=== PATIENT | male | born 1955 | race Caucasian/White ===

== ENCOUNTER 2019-06-11 14:04 | Emergency (ER) | payer MEDICARE, SELFPAY ==
--- NOTE | 2019-06-11 14:08 | ED.GENADULT ---
HPI - General Adult General Chief complaint: Extremity Problem,Nontraumatic Stated complaint: Neck Pain Time Seen by Provider: 06/11/19 14:23 Source: patient Mode of arrival: ambulatory Limitations: no limitations History of Present Illness HPI narrative: 63-year-old male patient presents to the [facility] with complaints of neck pain for the past 3 weeks. Patient states about 3 weeks ago he was taking off his shirt and states that he was bending his neck down, chin to the chest and thinks that he was doing it too fast and felt a pull to the back of his neck. Patient states that since then his pain has gradually gotten worse and feels very tight in the back. Patient states that he does have increased pain when moving his head from left to right and when looking up however does not necessarily have pain when he is looking downwards with his neck. Denies any numbness or tingling to the lower extremities. Denies any bowel or bladder control. Denies any back pain. Patient states he has been trying to take Aleve and use ice but has not really been helping much. Related Data Home Medications Medication Instructions Recorded Confirmed No Home Medications 06/11/19 06/11/19 Allergies Allergy/AdvReac Type Severity Reaction Status Date / Time No Known Allergies Allergy Verified 06/11/19 14:07 Review of Systems Review of Systems: Narrative: CONSTITUTIONAL: Denies fever, chills, or sweats. EYES: Denies visual changes, redness, or discharge. ENT: Denies rhinorrhea, congestion, sore throat, or otalgia. CARDIOVASCULAR: Denies chest pain, palpitations, or edema. RESPIRATORY: Denies cough or dyspnea. GASTROINTESTINAL: Denies abdominal pain, nausea, vomiting, or diarrhea. GENITOURINARY: Denies dysuria or hematuria. SKIN: Denies rash or itching. MUSCULOSKELETAL: Denies back pain, joint pain, or myalgia. Neck pain x3 weeks NEUROLOGIC: Denies headache, numbness, or weakness. PSYCHIATRIC: Denies anxiety or depression. PMFSH Comments Change at the time of my signature I agree with nursing past medical history, surgical, social, and family history. There is no relevant family history pertinent to the presenting complaint. Exam Narrative: Exam Narrative: GENERAL: Well-appearing, well-nourished, and in no acute distress. HEAD: Normocephalic, atraumatic. EYES: PERRLA and EOMI. ENT: Nares clear, no rhinorrhea or epistaxis. Mucous membranes moist. NECK: Supple, no lymphadenopathy. No surface trauma, soft tissue and muscle tenderness and spasm noted on palpation over bilateral scapulas. Worsening tightness noted with range of motion to the head. Trachea midline. No subq emphysema or crepitus. No anayeli tenderness, step-offs or deformity to firm Palpation at posterior midline. FROM without limitation or pain, normal flexion, extension,Lateral bending, rotation, and axial load. CHEST: Clear to auscultation. No respiratory distress. HEART: Regular rate and rhythm. No murmur heard. Normal peripheral pulses. ABDOMEN: Soft, nontender, nondistended, normal active bowel sounds. EXTREMITIES: Normal range of motion. No edema. SKIN: Warm, dry, no rash. NEURO: No focal deficits. Alert and oriented x3. Course Vital Signs Vital signs: Vital Signs Temperature 36.1 C L 06/11/19 14:17 Pulse Rate 84 06/11/19 14:17 Respiratory Rate 20 06/11/19 14:17 Blood Pressure 150/81 H 06/11/19 14:17 Pulse Oximetry 98 06/11/19 14:17 Temperature 36.1 C L 06/11/19 14:17 Pulse Rate 84 06/11/19 14:17 Respiratory Rate 20 06/11/19 14:17 Blood Pressure 150/81 H 06/11/19 14:17 Pulse Oximetry 98 06/11/19 14:17 Vital signs reviewed. The patient has been informed that they may have pre-hypertension or Hypertension based on a BP reading in the department. I recommend that the patient call the primary care provider listed on their discharge instructions or a physician of their choice this week to arrange follow up for further evaluation of possibl
[2019-06-11 14:17] VITALS: BP 150/81; PULSE 84; RESP 20; TEMP 36.1; O2SAT 98
== END 2019-06-11 14:37 | disposition home or self-care (01) ==
PROVIDERS: Emergency Provider Nurse Practitioner Family
DX: M62.838 Other muscle spasm (principal); G24.3 Spasmodic torticollis
CPT/HCPCS: 99213; G0463

== ENCOUNTER 2019-09-03 11:16 | Emergency (ER) | payer MEDICARE, SELFPAY ==
[2019-09-03 11:35] VITALS: BP 112/73; PULSE 85; RESP 16; TEMP 36.2; O2SAT 99
--- NOTE | 2019-09-03 11:45 | ED.BACK ---
HPI - Back Pain/Injury General Chief Complaint: Back Pain/Injury Stated Complaint: lower back pain Time Seen by Provider: 09/03/19 11:45 Source: patient and RN notes reviewed Mode of arrival: ambulatory Limitations: no limitations History of Present Illness HPI Narrative: 63-year-old male presents with concern for low back pain. Reports to 3-week history of back pain that is progressively getting worse. Reports mid low back pain that radiates to both sides. Reports he sometimes can find a position of comfort with no pain, however with any movement, bending, twisting, coughing, sneezing the pain is a 5-7 on a 10. He denies any acute injury, trauma. Denies any old injury. Reports taking Aleve, ice, heat with no relief. Denies any hematuria, dysuria, frequency, urgency, scrotal pain, abdominal pain. MD elicited complaint: back pain Related Data Allergies Allergy/AdvReac Type Severity Reaction Status Date / Time No Known Allergies Allergy Verified 06/11/19 14:07 Review of Systems Review of Systems: Narrative: CONSTITUTIONAL: Denies malaise, chills, sweats, or fever. CARDIOVASCULAR: Denies chest pain, palpitations, or edema. RESPIRATORY: Denies cough or dyspnea. GASTROINTESTINAL: Denies abdominal pain, nausea, vomiting, diarrhea, bloody, or mucous stools. Denies loss of bowel function GENITOURINARY: Denies dysuria or hematuria. Denies loss of bladder function, denies perianal anesthesia SKIN: Denies bruising, redness, swelling MUSCULOSKELETAL: Reports mid low back pain NEUROLOGIC: Denies numbness, weakness, or headache. All systems reviewed & are unremarkable except as noted in HPI and below PMFSH Comments At time of signature, agree with nursing past medical, surgical, social and family history. There is no relevant family history pertinent to the presenting complaint Exam Narrative: Exam Narrative: GENERAL: Well-appearing, well-nourished, and in no acute distress. HEAD: Normocephalic, atraumatic. EYES: PERRLA and EOMI. NECK: Supple. No lymphadenopathy. CHEST: Clear to auscultation. No respiratory distress. HEART: Regular rate and rhythm. Distal pulses palpable and equal, cap refill <3 seconds ABDOMEN: Soft, nontender, nondistended, normal active bowel sounds, no palpable or pulsatile masses. No CVA tenderness MUSCULOSKELETAL: Normal range of motion and strength in all extremities; 5/5 strength with hip flexion and extension, dorsiflexion and extension, knee flexion and extension, plantar flexion and extension. Normal sensation in dermatomal distributions with sensitivity to light touch and pain. No midline back tenderness to palpation. No paraspinal tenderness. Transfers from lying to sitting to standing. SKIN: Warm, dry, no rash. No ecchymosis, erythema, open wounds to back. NEURO: No focal deficits. Alert and oriented x3. Reflexes intact. Normal gait. PSYCH: Normal mood and affect Course Course Emergency Course: Patient is aware of diagnosis, understands and agrees to treatment plan. Anticipatory guidance given. Patient agrees to follow-up as directed and is aware of reasons to seek care at the emergency department. Portions of this record may have been created with voice recognition software Vital Signs Vital signs: Vital Signs Temperature 97.1 F L 09/03/19 11:35 Pulse Rate 85 09/03/19 11:35 Respiratory Rate 16 09/03/19 11:35 Blood Pressure 112/73 09/03/19 11:35 Pulse Oximetry 99 09/03/19 11:35 Temperature 97.1 F L 09/03/19 11:35 Pulse Rate 85 09/03/19 11:35 Respiratory Rate 16 09/03/19 11:35 Blood Pressure 112/73 09/03/19 11:35 Pulse Oximetry 99 09/03/19 11:35 Reviewed. MDM - Back Pain/Injury MDM Narrative Medical decision making narrative: No risk factors or findings concerning for epidural abscess, diskitis, vertebral osteomyelitis, cord compression, cauda equina, vertebral fracture or bone malignancy, AAA, or pyelonephritis. Patient instructed to consider further imaging a
== END 2019-09-03 12:02 | disposition home or self-care (01) ==
PROVIDERS: Emergency Provider Nurse Practitioner
DX: M54.5 Low back pain (principal)
CPT/HCPCS: 81003; 99213; G0463

== ENCOUNTER 2019-10-02 17:02 | Emergency (ER) | payer MEDICARE, SELFPAY ==
--- NOTE | ~2019-10-02 | CT_ITS ---
EXAMINATION: CT abdomen pelvis w con EXAM DATE: 10/02/2019 19:09 INDICATION: Abdominal pain, constipation. TECHNIQUE: Spiral CT of the abdomen and pelvis was performed following intravenous injection of 100 m L Omnipaque 350. Axial, coronal and sagittal images were reviewed. The dose-length product (DLP) fo r this examination was 906.76 mGy-cm. The exposure was tailored according to patient size (auto mA e xposure control), and iterative reconstruction (ASIR) was used as additional dose reduction technique . There is no prior study for comparison. FINDINGS: Power Machine Operator image demonstrates possible left suprahilar mass versus costochondral cartilage calci fication. There is a 6 mm nodule in the left lower lobe on image #1. Mild to moderate emphysema, basi lar fibrosis. There is bilateral gynecomastia. Innumerable liver metastatic lesions. There is also bilateral adrenal gland nodularity which could be metastatic disease. Spleen, pancreas are unremarkable. Gallbladder is unremarkable. No biliary obs truction. Portal and splenic veins are patent. Kidneys enhance symmetrically. There is no hydronep hrosis. There is a right renal cyst measuring 3.4 cm. The prostate is unremarkable. Small bilateral inguinal fat-containing hernias. The bladder is unremarkable. There is no retroperitoneal or pelvic lymphadenopathy. There is moderate scattered arteriosclerotic disease. Probable identification of a normal appendix. No pericecal inflammation. The stomach and small oz l are unremarkable. The ascending and transverse colon are moderately distended. The descending and sigmoid colon are essentially collapsed but there is no discrete transition point or focal colonic wa ll thickening identified. There is mild to moderate sigmoid colonic diverticulosis. There is no moon cent inflammatory change to suggest diverticulitis. No free intraperitoneal gas. Multiple vertebral body predominant osteolytic lesions with mild to moderate central compression frac ture of the L2 vertebral body which could be pathologic. Mild compression fractures of L3, L4 and L5 also present which are likely chronic. IMPRESSION: 1. Innumerable liver metastatic lesions. 2. Multiple vertebral body predominant osteolytic lesions. 3. Probable adrenal metastases. 4. Indeterminate left basilar 6 mm nodule. 5. Colonic diverticulosis. 6. Possible left suprahilar mass; recommend chest CT without contrast. Reviewed, dictated and finalized at location A.
--- NOTE | ~2019-10-02 | CT_ITS ---
EXAMINATION: CT cervical spine wo con EXAM DATE: 10/02/2019 19:09 INDICATION: Cervical Popping sensation. TECHNIQUE: Spiral CT of the cervical spine was performed without contrast. Axial images were reviewe d. Coronal and sagittal reformatted images were also reviewed. The dose-length product (DLP) for thi s examination was 435.52 mGy-cm. The exposure was tailored according to patient size (auto mA exposu re control), and iterative reconstruction (ASIR) was used as additional dose reduction technique. Th ere is no prior study for comparison. FINDINGS: Biapical opacities most consistent with scarring with regions of calcification. There are multiple vertebral body osteolytic lesions, with a pathological burst fracture of the C4 level, william re loss of the height, and about 3 mm of retropulsion into the spinal canal. There is complete demine ralization of the pedicles of C4, this should be considered an unstable type pathological fracture; r ecommend neurosurgical evaluation. No osteolytic lesions are identified within C2 vertebral body. The vertebral bodies are aligned in th e AP dimension. There is mild to moderate cervical spondylosis. Paraspinal soft tissue is unremarkabl e. IMPRESSION: Multiple osteolytic lesions with C4 pathological burst fracture; recommend considering t his unstable and neurosurgical evaluation. I discussed this finding with Dr. Tamar Topete at 10/02/2019 19:31 CDT. Reviewed, dictated and finalized at location A. IMPRESSION: Multiple osteolytic lesions with C4 pathological burst fracture; r ecommend considering this unstable and neurosurgical evaluation. I discussed this finding with Dr. Tamar Topete at 10/02/2019 19:31 CDT.
--- NOTE | 2019-10-02 17:16 | ED.GENADULT ---
HPI - General Adult General Chief complaint: Abdominal Pain <Jessica Allen MD - Last Filed: 10/02/19 19:16> Stated complaint: SOB <Jessica Allen MD - Last Filed: 10/02/19 19:16> Time Seen by Provider: 10/02/19 17:15 <Jessica Allen MD - Last Filed: 10/02/19 19:16> Source: patient <Jessica Allen MD - Last Filed: 10/02/19 19:16> Mode of arrival: ambulatory <Jessica Allen MD - Last Filed: 10/02/19 19:16> Limitations: no limitations <Jessica Allen MD - Last Filed: 10/02/19 19:16> History of Present Illness HPI narrative: Patient is a 64-year-old male who presented for evaluation of abdominal pain and back pain. Patient is reporting a 6-week history of worsening back pain, which he started taking tramadol for the pain as prescribed by Dr. Corley his primary care provider. Patient since developed constipation, and has not had a bowel movement in over 6 days. Patient reports lower abdominal pain, abdominal distention. No fever, nausea or vomiting. No cough, shortness of breath or chest pain. No dysuria or hematuria. Patient without history of abdominal surgeries. No recent falls or injury. No numbness or weakness. No saddle anesthesia. No urinary retention. <Jessica Allen MD - Last Filed: 10/02/19 19:16> Related Data Home medications: Home Medications Medication Instructions Recorded Confirmed naproxen sodium 220 mg tablet See Rx Instructions .ROUTE .COMPLEX 09/27/19 <Jessica Allen MD - Last Filed: 10/02/19 19:16> Allergies/adverse reactions: Allergies Allergy/AdvReac Type Severity Reaction Status Date / Time No Known Allergies Allergy Verified 10/02/19 17:29 <Jessica Allen MD - Last Filed: 10/02/19 19:16> Review of Systems Review of Systems: Narrative: CONSTITUTIONAL: Denies fever, chills, or sweats. EYES: Denies visual changes, redness, or discharge. ENT: Denies rhinorrhea, congestion, sore throat, or otalgia. CARDIOVASCULAR: Denies chest pain, palpitations, or edema. RESPIRATORY: Denies cough or dyspnea. GASTROINTESTINAL: Reports abdominal pain and distention, reports constipation GENITOURINARY: Denies dysuria or hematuria. SKIN: Denies rash or itching. MUSCULOSKELETAL: Reports upper and lower back pain, denies joint pain NEUROLOGIC: Denies headache, numbness, or weakness. PSYCHIATRIC: Denies anxiety or depression. <Jessica Allen MD - Last Filed: 10/02/19 19:16> [facility] Past Medical History Medical History: Medical History Chicken pox Chronic back pain Fatigue High cholesterol Mononucleosis Mumps Pneumonia Screening cholesterol level <Jessica Allen MD - Last Filed: 10/02/19 19:16> Family History Family History: Family History Father , 95 No problems noted. Mother , 56 Cancer <Jessica Allen MD - Last Filed: 10/02/19 19:16> Social History Social History: Social History Gender identity (if verbalized by the patient): Male <Jessica Allen MD - Last Filed: 10/02/19 19:16> Exam Narrative: Exam Narrative: GENERAL: Awake, alert, conversant HEAD: Normocephalic, atraumatic. EYES: PERRLA and EOMI. ENT: Nares clear, no rhinorrhea or epistaxis. Mucous membranes moist. NECK: Supple. CHEST: No respiratory distress, breathing even and non labored HEART: Tachycardic rate, sinus rhythm ABDOMEN: Mild distention, mild lower abdominal tenderness without rebound or guarding Thorax: No cervical midline, thoracic midline or lumbar midline tenderness EXTREMITIES: Normal range of motion. No edema. SKIN: Warm, dry, no rash. NEURO:No focal deficits. Alert and oriented x3. Finger to nose intact bilaterally. EOMs intact without nystagmus. No facial droop/asymmetry noted bilaterally. Grimace intact. Intact sensa
[2019-10-02 17:18] VITALS: BP 143/71; PULSE 124; RESP 20; TEMP 37.1; O2SAT 97
--- NOTE | 2019-10-02 17:44 | ECG_ITS ---
Measurements Intervals [place] Rate: 111 P: 73 VA: 140 QRS: -32 QRSD: 97 T: 62 QT: 315 QTc: 429 Interpretive Statements SINUS TACHYCARDIA LEFT AXIS DEVIATION BORDERLINE R WAVE PROGRESSION, ANTERIOR LEADS ABNORMAL ECG Electronically Signed On 10-02-2019 19:39:42 CDT by Teo Reyes D.O.
[2019-10-02] MEDS: ONDANSETRON INJ 4 MG/2 ML VIAL IV PUSH ×2 (17:56→20:36)
[2019-10-02] MEDS: SODIUM CHLORIDE 0.9% IV 1,000 ML 999 ML IV CONT (17:56)
[2019-10-02] MEDS: MORPHINE SULFATE 4 MG/ML INJ IV PUSH (17:56)
[2019-10-02 18:10] VITALS: BP 138/82; PULSE 95; RESP 20; O2SAT 96
[2019-10-02 18:14] LABS: Basophils Percent Auto 0.3 % (0.2-1.2); Eosinophils Absolute Auto 0.1 K/mm3 (0-0.3); Eosinophils Percent Auto 1.3 % (0-4.4); Hemoglobin 14.8 g/dL (14.0-18.0); Immature Granulocyte Absolute 0.05 K/mm3 (0.00-0.031); Immature Granulocyte Percent A 0.7 % (0-0.5); Lymphocytes Absolute Auto 0.97 K/mm3 (0.9-3.2); Lymphocytes Percent Auto 14.2 % (18.3-44.2); Mean Corpuscular HGB Conc 34.4 g/dl (32-36); Mean Corpuscular Hemoglobin 32.1 pg (26-34); Mean Corpuscular Volume 93.3 fl (80-100); Mean Platelet Volume 12.1 fl (7.4-10.4); Neutrophils Absolute Auto 4.8 K/mm3 (1.3-6.7); Neutrophils Percent Auto 69.5 % (45.5-73.1); Platelet Count Result 159 k/mm3 (150-375); Red Blood Count 4.61 M/mm3 (4.6-6.20); Red Cell Distribution Width 14.8 % (11.5-14.5); White Blood Count 6.8 K/mm3 (4.5-10.0)
[2019-10-02 18:22] LABS: INR 1.1; Partial Thromboplastin Time 34.9 SECONDS (22.3-36.8); Prothrombin Time 14.3 Seconds (11.1-14.7)
[2019-10-02 18:25] LABS: Alanine Aminotransferase 70 U/L (4-50); Albumin Level 3.8 g/dL (3.5-5.1); Alkaline Phosphatase 566 U/L (38-126); Aspartate Amino Transferase 190 U/L (17-59); Blood Urea Nitrogen 14 mg/dL (9-20); Calcium 9.9 mg/dL (8.4-10.2); Carbon Dioxide 24 mmol/L (22-30); Chloride 97 mmol/L (98-107); Estimated CRCL calculation 87 ml/min; Estimated Glomerular Filt Rate > 60; Glucose 100 mg/dL (75-110); Lactic Acid Reflex 2.7 mmol/L (0.7-2.1); Potassium 4.2 mmol/L (3.4-5.0); Sodium 130 mmol/L (137-145)
[2019-10-02 19:11] VITALS: BP 118/78; PULSE 97; RESP 20; O2SAT 96
[2019-10-02] MEDS: MORPHINE SULFATE 2 MG/ML INJ IV PUSH (19:43)
[2019-10-02] MEDS: SODIUM CHLORIDE 0.9% IV 500 ML 999 ML IV CONT (19:43)
[2019-10-02 19:45] VITALS: BP 123/79; PULSE 98; RESP 20; O2SAT 96
--- NOTE | 2019-10-02 20:07 | PC.NURSE ---
Called [facility] to transport patient. Declined.
--- NOTE | 2019-10-02 20:26 | PC.NURSE ---
Called [facility] for transport. ETA [id number] Called [facility] for transport. [facility] declined.
--- NOTE | 2019-10-02 20:31 | PC.NURSE ---
Called [facility] to request transport. [facility] declined.
[2019-10-02 20:48] VITALS: BP 120/74; PULSE 99; RESP 20; O2SAT 97
[2019-10-02 21:12] LABS: Reflex Lactic Acid Yes or No Add Lactic
[2019-10-02] MEDS: METOCLOPRAMIDE HCL INJ 10 MG/2 ML VIAL IV PUSH (21:35)
[2019-10-02] MEDS: DEXTROSE 5%/0.9% SOD CHL 1,000 ML 100 ML IV CONT (21:36)
== END 2019-10-02 21:50 | disposition short-term general hospital (02) ==
PROVIDERS: Emergency Medicine; Emergency Provider Emergency Medicine; PCP Emergency Medicine
DX: R10.84 Generalized abdominal pain (principal); R74.0 Nonspecific elevation of levels of transaminase and lactic acid dehydrogenase [LDH]; E80.6 Other disorders of bilirubin metabolism; R94.5 Abnormal results of liver function studies; E87.2 Acidosis; C22.9 Malignant neoplasm of liver, not specified as primary or secondary; E78.00 Pure hypercholesterolemia, unspecified; M84.48XA Pathological fracture, other site, initial encounter for fracture; R00.0 Tachycardia, unspecified; R94.31 Abnormal electrocardiogram [ECG] [EKG]; M89.9 Disorder of bone, unspecified; R91.1 Solitary pulmonary nodule; K57.90 Diverticulosis of intestine, part unspecified, without perforation or abscess without bleeding
CPT/HCPCS: 36415; 72125; 74177; 80053; 83605; 85025; 85610; 85730; 93005; 96361; 96365; 96375; 99285; J2270; J2405; J2543; J2765; J7030; J7040; J7042; L0140; Q9967

== ENCOUNTER 2019-10-19 01:16 | Outpatient (CLI) | payer MEDICARE, SELFPAY ==
[2019-10-19 16:42] LABS: SARS-CoV-2 RNA PCR Negative
== END 2019-10-19 01:17 | disposition home or self-care (01) ==
LOC: ANHCOVIDDT 01:16
PROVIDERS: PCP Emergency Medicine; Visit Provider Surgery
DX: Z20.828 Contact with and (suspected) exposure to other viral communicable diseases (principal); Z01.812 Encounter for preprocedural laboratory examination
CPT/HCPCS: 87635; C9803; U0003

== ENCOUNTER 2019-10-22 00:57 | Day surgery (SDC) | payer MEDICARE, SELFPAY ==
[2019-10-17 13:34] VITALS: BMI 25.7
[2019-10-17 13:47] VITALS: BMI 25.7
--- NOTE | ~2019-10-22 | XR_ITS ---
EXAMINATION: XR chest port-a-cath/central DATE: 10/22/2019 14:58 INDICATION: Port catheter insertion TECHNIQUE: frontal view of the chest was obtained. COMPARISON: Chest radiograph dated 08/07/2018 FINDINGS: Right internal jugular central venous port catheter with distal tip near the superior cavoatrial junc tion. Emphysema with mild biapical pleural-parenchymal scarring. Approximately 3 cm masslike opacity in the left upper lung zone. Mild reticular opacities at the bilateral lower lung zones. No pneumotho rax or evident pleural effusion. The left costophrenic angle is excluded from the [id number]. The cardiomediastinal silhouette is normal. Partially visualized plate and screw fixation for anterior ce rvical spinal fusion. IMPRESSION: 1. No pneumothorax or other acute cardiopulmonary disease post placement of a right internal jugular central venous port catheter with distal tip at the superior cavoatrial junction. 2. 3 cm masslike opacity in the left upper lung zone concerning for malignancy. Recommend chest CT fo r further evaluation or correlation with prior outside imaging if available. 3. Mild reticular opacities at the lung bases which could represent mild pulmonary edema, atelectasis or pneumonia. 4. Emphysema. Reviewed, dictated and finalized at location A. IMPRESSION: 1. No pneumothorax or other acute cardiopulmonary disease post placement of a r ight internal jugular central venous port catheter with distal tip at the super ior cavoatrial junction. 2. 3 cm masslike opacity in the left upper lung zone concerning for malignancy. Recommend chest CT for further evaluation or correlation with prior outside im aging if available. 3. Mild reticular opacities at the lung bases which could represent mild pulmon palak edema, atelectasis or pneumonia. 4. Emphysema.
--- NOTE | ~2019-10-22 | XR_ITS ---
EXAMINATION: XR fl guide central line place DATE: 10/22/2019 14:37 INDICATION: Port catheter insertion TECHNIQUE: 3 fluoroscopic spot images of the right and central chest were obtained during port cathet er insertion performed by Dr. Henning. Radiologist was not present for the imaging or procedure. The amount of fluoroscopy time used during this procedure was 0.5 minutes. COMPARISON: 08/07/2018 FINDINGS: Interval placement of a right internal jugular central venous port catheter with distal tip projectin g at the superior cavoatrial junction. Calcified pleural plaque at the right apex. IMPRESSION: 1. Fluoroscopy utilized during right internal jugular central venous port catheter placement with dis garret tip near the superior cavoatrial junction. Reviewed, dictated and finalized at location A. IMPRESSION: 1. Fluoroscopy utilized during right internal jugular central venous port delbert ter placement with distal tip near the superior cavoatrial junction.
--- NOTE | 2019-10-22 11:43 | PM.HPGS ---
History of Present Illness History of Present Illness Consent: Risks, benefits, and alternatives have been discussed and questions answered. Patient agrees to proceed with procedure. 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 Consultation was requested for consideration of Placement of a Port-A-Cath for use in chemotherapy. Review of Systems Constitutional: Constitutional: Reports no additional constitutional complaints, Reports fatigue and Denies malaise Eyes: Eyes: Denies change in vision and Denies loss of vision ENT: Reports Normal hearing present, Denies change in voice, Denies dizziness, Denies hoarseness and Denies sore throat Cardiovascular: Cardiovascular: Denies chest pain, Denies leg edema and Denies dyspnea Respiratory: Respiratory: Denies cough, Denies dyspnea and Denies wheezing Gastrointestinal: Gastrointestinal: Denies hematochezia, Denies change in bowel habits and Denies heartburn Comments: CT scan of the abdomen and pelvis has shown some lesions in his liver shown to be metastatic small cell carcinoma the lung by CT-guided biopsy. 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 Also had tumor in his C4 vertebra. Psychiatric: Psychiatric: Denies confusion, Denies depression and Denies memory loss Endocrine: Endocrine: Denies cold intolerance and Reports fatigue Hematologic/Lymphatic: Hematologic/Lymphatic: Denies easy bleeding and Denies easy bruising Allergic/Immunologic: Allergic/Immunologic: Denies wheezing PMFSH Past Medical History Medical History (Updated 10/22/19 @ 13:52 by Nicanor Henning MD) Chicken pox Chronic back pain Fatigue High cholesterol Mononucleosis Mumps Non-small cell carcinoma of left lung, stage 4 (Unknown) liver metastasis Pneumonia Screening cholesterol level Social History Social History Smoking packs per day: 2 Smoking cigarettes per day: 40.0 Years smoked: 50 Smoking pack-years: 100.00 Smoking status: Former smoker Tobacco type: cigarettes Gender identity (if verbalized by the patient): Male Spiritual care concerns: No Meds Home Medications and Allergies Home Medications Medication Instructions Recorded Confirmed Type dexamethasone 4 mg PO BID 10/16/19 10/22/19 History hydrocodone-acetaminophen 1 tablet PO Q4H PRN 10/16/19 10/22/19 History loperamide [Imodium A-D] 2 mg PO QID PRN 10/17/19 10/22/19 History prochlorperazine maleate 10 mg PO Q6-8H PRN 10/22/19 10/22/19 History Allergies Allergy/AdvReac Type Severity Reaction Status Date / Time No Known Allergies Allergy Verified 10/22/19 11:48 Exam Const: General: cooperative, healthy appearing, no acute distress, well developed and alert; No confusion Nutritional Appearance: well nourished Orientation/consciousness: patient oriented x3 and No confusion Limitations: no limitations HENMT: Head: normal to inspection, normocephalic and atraumatic Ears: hearing grossly normal bilaterally General nose exam: Normal external nose present Face and sinus: no edema Mouth: Yes Normal oral and palatal mucosa present and Yes lip normal Throat: posterior oropharynx normal Eyes: General: appearance normal, both eyes and all related structures Sclera: sclerae normal Pupils: Equal, round and reactive pupils present EOM: EOMs intact bilaterally Other: . Neck: Neck: normal visual inspection, no lymphadenopathy, trachea midline, supple and no JVD Other: Patient has a well-healed transverse scar high on the neck under his rig
[2019-10-22 11:54] VITALS: BMI 24.5
--- NOTE | 2019-10-22 11:54 | WPDANESEPPF ---
Anes - Initial Pre Proc Eval Procedure: Operation Date: 10/22/19 13:30 Proposed Procedures p Insertion Michael Cath - Nicanor Henning MD Date/Time: 10/22/19 11:54 Surgeon: Nicanor Henning MD Pre Op Diagnosis: Non Small Lung Cancer Patient Data Age: 64 Gender: M Height: 1.83 m Weight: 86.18 kg Allergies Allergy/AdvReac Type Severity Reaction Status Date / Time No Known Allergies Allergy Verified 10/22/19 11:48 Home Medications Medication Instructions Recorded Confirmed Type dexamethasone 4 mg PO BID 10/16/19 10/22/19 History hydrocodone-acetaminophen 1 tablet PO Q4H PRN 10/16/19 10/22/19 History loperamide [Imodium A-D] 2 mg PO QID PRN 10/17/19 10/22/19 History prochlorperazine maleate 10 mg PO Q6-8H PRN 10/22/19 10/22/19 History Patient hx anesthesia problems: none Family hx anesthesia problems: none PMFSH Past Medical History Medical History (Updated 10/22/19 @ 11:54 by Lio Massey DO) Chicken pox Chronic back pain Fatigue High cholesterol Mononucleosis Mumps Non-small cell carcinoma of left lung, stage 4 (Unknown) liver metastasis Pneumonia Screening cholesterol level Social History Social History Smoking packs per day: 2 Smoking cigarettes per day: 40.0 Years smoked: 50 Smoking pack-years: 100.00 Smoking status: Former smoker Tobacco type: cigarettes Gender identity (if verbalized by the patient): Male Spiritual care concerns: No Anes - Eval Final PreProcedure Day of Procedure 10/22/19 11:54 Patient weight: overweight Heart: regular rate and rhythm Lungs: clear to auscultation and normal air movement Airway: Mallampati scale class II Neurological: alert and oriented Last oral intake: >/= 8 hours ASA classification: III Emergent: no Anesthetic plan: proceed Anesthesia type and monitoring: general GIVS and standard monitoring Informed Consent: The patient's anesthetic plan and its attendant risks and benefits were discussed with the patient/family/POA. Questions were solicited and answers provided to the satisfaction of the patient/family/POA.
[2019-10-22] MEDS: LACTATED RINGERS 1,000 ML 30 ML IV CONT (12:30)
[2019-10-22 12:45] VITALS: BP 123/73; PULSE 102; RESP 20; TEMP 36.7; O2SAT 97
[2019-10-22] MEDS: IBUPROFEN IV 800 MG/200 ML 800 MG/200 ML BAG 400 MG IVPB (12:45)
[2019-10-22 13:08] LABS: Sodium 130 mmol/L (137-145)
[2019-10-22] MEDS: ceFAZolin 2 GM/D5W 50 ML 2 GM/50 ML BAG IVPB (13:52)
--- NOTE | 2019-10-22 14:03 | SUR.PREOP ---
1200; DR PEACOCK NOTIFIED OF PT'S LOOSE, NONPROD COUGH. DENIES SOB.
[2019-10-22] MEDS: HEPARIN SODIUM 5,000 UNITS/ML VIAL 5000 UNITS IRRIGATION (14:25)
[2019-10-22] MEDS: BUPIVACAINE/EPINEPHRINE 0.5% 30 ML VIAL 20 ML INFILTRATE (14:25)
--- NOTE | 2019-10-22 14:47 | PM.PROC ---
Procedure Note - Detailed Date of procedure: 10/22/19 Pre-op diagnosis: Non Small Lung Cancer Post-op diagnosis: same Procedure performed: placement of Port-A-Cath Description of procedure: Patient was seen and marked in the pre-op area prior to coming to the OR. Patient was brought to the operating room. He was placed supine on the operating table and general IV sedation was induced. The nurse reclamation kettle tender provided oxygen and IV sedation. Patient's head was carefully turned to the left side while in the supine position and the patient's entire neck and anterior chest on both sides was prepped and draped in the usual sterile fashion. Following this the appropriate time-out was completed confirming procedure and patient. We confirmed that all the needed equipment was present in the room. Following this the ultrasound probe was draped into the field and using the probe we carefully identified the carotid artery and jugular vein on the right neck. I marked the skin directly over the Rt. internal jugular vein. Following this, using the continuous ultrasound guidance, a Cook needle was placed through the skin into this vein. I then was able to draw back good dark blood. Once this was completed a guidewire using a J-tip was advanced through the needle and then the needle and the guidewire cover were withdrawn. C-arm fluoroscopy was used to confirm that the guidewire was nicely in the venous system. Once this was confirmed with the C - arm I preceded on by making the pocket for the port on the patient's anterior right chest approximately 3 centimeters below the clavicle overlying the chest wall. Local anesthetic was infiltrated into the skin where there was a transverse incision marked out. Incision was made and we made a pocket inferior to the incision with just a little dissection superior. The Bard low-profile port was tried in the pocket and seemed to fit well. Following this the catheter which had been placed on a tunneling device was tunneled from the port site on the anterior right chest up to the right neck where a small incision had been made with an #11 blade knife. Then the catheter was pulled through so that we would have 15 centimeters to put into the central venous system once the dilation took place. Following this we placed the dilator and sheath over the guidewire in the jugular vein and carefully dilated the tract into the central venous system. The guidewire and dilator were then removed, carefully covering the end of the sheath to prevent air embolus. The end of the catheter which had been cut off straight across and the tip checked was then inserted into the sheath and into the neck. I then carefully pulled the 2 arms of the tear-away sheath away as the resident care assistant held the catheter in position with a DeBakey forceps. Following this we checked the position of the catheter with C-arm fluoroscopy confirming that the tip seemed to be in the distal superior vena cava near the junction with the right atrium. I felt that it was in good position and so the rest of the catheter was pulled down toward the feet into the port site. We then measured to the appropriate position to cut the catheter to attach it to the port stem. Then the connector sealing device for the catheter port was placed onto the catheter and then the catheter cut to the appropriate length and inserted onto the stem of the port. Then the connector was advanced onto the stem over the catheter sealing it to the port. A single 3- 0 Prolene suture was also used during this to suture the connector to the port and to the underlying musculature. Following this at one other site the port was sutured to the underlying musculature with the 3-0 Proline. Both prior to connecting the catheter to the port and then using a straight Randolph needle following this connection, the port was aspirated of good dark blood and flushed with heparinized saline to keep the catheter from having any air in it and
[2019-10-22 14:56] VITALS: BP 110/61; PULSE 87; RESP 15; TEMP 36.3; O2SAT 100
[2019-10-22 15:18] VITALS: BP 106/71; PULSE 92; RESP 15; O2SAT 100
[2019-10-22 15:46] VITALS: BP 125/57; PULSE 82; RESP 15; O2SAT 100
--- NOTE | 2019-10-22 15:47 | SUR.PHASEII ---
1545- ice pack to right surgical site at shoulder. instructions reviewed with pt.
== END 2019-10-22 16:05 | disposition home or self-care (01) ==
PROVIDERS: PCP Emergency Medicine; Visit Provider Surgery
PROC: (CPT 36561; principal; 2019-10-22 13:30)
DX: C34.92 Malignant neoplasm of unspecified part of left bronchus or lung (principal); C78.7 Secondary malignant neoplasm of liver and intrahepatic bile duct; E78.00 Pure hypercholesterolemia, unspecified; R53.83 Other fatigue; Z87.891 Personal history of nicotine dependence
CPT/HCPCS: 36561; 36415; 77001; 84295; C1788; J0690; J1644; J1741; J2250; J2704; J3010; J7030; J7120

== ENCOUNTER 2019-10-25 11:42 | Inpatient (IN) | payer MEDICARE, SELFPAY ==
[2019-10-25] VITALS (12 sets, daily range): BP systolic 88–121; BP diastolic 50–91; PULSE 103–119; RESP 16–29; TEMP 36.6–36.8; O2SAT 94–97; BMI 23.9
--- NOTE | ~2019-10-25 | XR_ITS ---
EXAMINATION: XR chest 1V portable DATE: 10/25/2019 14:53 INDICATION: Cough. TECHNIQUE: A single frontal view of the chest was obtained. COMPARISON: Chest single view 10/22/2019, CT abdomen and pelvis 10/25/2019 FINDINGS: There are lucencies in the lungs with diffuse interstitial opacities, consistent with emphy sema. There are airspace opacities in the lower lung zones. There is a mass in left upper lung zone. There is mild scarring at the lung apices. No pleural effusion or pneumothorax. The heart size is nor mal. There is a right internal jugular port with tip at superior cavoatrial junction. IMPRESSION: 1. Airspace opacities in the lower lung zones, consistent with pneumonia. 2. Mass in left upper lung zone, consistent with primary bronchogenic carcinoma. 3. Emphysema. Reviewed, dictated and finalized at location A. IMPRESSION: 1. Airspace opacities in the lower lung zones, consistent with pneumonia. 2. Mass in left upper lung zone, consistent with primary bronchogenic carcinoma . 3. Emphysema.
--- NOTE | ~2019-10-25 | CT_ITS ---
EXAMINATION: CT abdomen pelvis w con DATE: 10/25/2019 13:50 INDICATION: Abdominal pain. Low back pain. TECHNIQUE: Computed tomography (CT) of the abdomen and pelvis was performed with 100 mm Omnipaque 350 intravenous contrast. Automated exposure control and iterative reconstruction technique were employe d. The dose-length product was 578.64 mGy-cm. COMPARISON: CT abdomen and pelvis 10/02/2019 FINDINGS: The visualized portions of the lung bases demonstrate emphysema. There are airspace opaciti es and nodules in the lower lobes, consistent with pneumonia. There is mild atelectasis in right midd le lobe and lingula. No pleural effusion. The heart size is normal. There are coronary artery calcifi cations. No pericardial effusion. There are greater than 20 masses in the liver measuring up to 5.3 c m in left hepatic lobe. The gallbladder, spleen, and pancreas are normal. There is thickening of the adrenal glands, which is indeterminate for metastatic disease. There are cysts in right kidney measur ing up to 3.2 cm. Left kidney is normal. There are no dilated loops of bowel. The appendix is normal. There is a 3.2 cm fusiform infrarenal aortic aneurysm. There are no pathologically enlarged lymph no gianluca. There is no free intraperitoneal fluid. There is prominent fat in the inguinal canals that may b e small hernias. There are innumerable lytic lesions involving most of the bones, consistent with met astatic disease. There are compression fractures of L2 and L3, stable from 10/02/2019. IMPRESSION: 1. Pneumonia in the lower lobes. 2. Liver masses and lytic bone lesions, consistent with metastatic disease. Reviewed, dictated and finalized at location A.
--- NOTE | 2019-10-25 11:42 | PC.NURSE ---
Pt unable to urinate at this time
[2019-10-25] MEDS: MORPHINE SULFATE 4 MG/ML INJ IV PUSH (12:25)
[2019-10-25] MEDS: ONDANSETRON INJ 4 MG/2 ML VIAL IV PUSH (12:26)
[2019-10-25 12:32] LABS: Basophils Percent Auto 0.3 % (0.2-1.2); Eosinophils Absolute Auto 0.1 K/mm3 (0-0.3); Eosinophils Percent Auto 0.6 % (0-4.4); Hematocrit 42.8 % (42.0-52.0); Hemoglobin 14.5 g/dL (14.0-18.0); Immature Granulocyte Absolute 0.23 K/mm3 (0.00-0.031); Immature Granulocyte Percent A 1.6 % (0-0.5); Immature Platelet Fraction Pct 6.7 % (0.9-11.2); Lymphocytes Absolute Auto 1.15 K/mm3 (0.9-3.2); Lymphocytes Percent Auto 7.8 % (18.3-44.2); Mean Corpuscular HGB Conc 33.9 g/dl (32-36); Mean Corpuscular Hemoglobin 32.3 pg (26-34); Mean Corpuscular Volume 95.3 fl (80-100); Mean Platelet Volume 12.3 fl (7.4-10.4); Monocytes Absolute Auto 0.9 K/mm3 (0.1-0.6); Monocytes Percent Auto 6.3 % (2.6-8.5); Neutrophils Absolute Auto 12.4 K/mm3 (1.3-6.7); Neutrophils Percent Auto 83.4 % (45.5-73.1); Nucleated Red Blood Cells Perc 0.1 % (0.0-0.2); Platelet Count Result 95 k/mm3 (150-375); Red Blood Count 4.49 M/mm3 (4.6-6.20); Red Cell Distribution Width 17.4 % (11.5-14.5); White Blood Count 14.8 K/mm3 (4.5-10.0)
[2019-10-25 12:39] LABS: INR 1.4; Prothrombin Time 16.4 Seconds (11.1-14.7)
[2019-10-25 12:40] LABS: Partial Thromboplastin Time 33.9 SECONDS (22.3-36.8)
[2019-10-25 12:41] LABS: Alanine Aminotransferase 145 U/L (4-50); Albumin Level 3.1 g/dL (3.5-5.1); Alkaline Phosphatase 730 U/L (38-126); Aspartate Amino Transferase 399 U/L (17-59); Blood Urea Nitrogen 18 mg/dL (9-20); Calcium 9.1 mg/dL (8.4-10.2); Carbon Dioxide 27 mmol/L (22-30); Chloride 94 mmol/L (98-107); Estimated Glomerular Filt Rate > 60; Glucose 102 mg/dL (75-110); Potassium 4.6 mmol/L (3.4-5.0); Sodium 128 mmol/L (137-145)
--- NOTE | 2019-10-25 12:42 | PC.NURSE ---
Pt still unable to urinate at this time
[2019-10-25] MEDS: SODIUM CHLORIDE 0.9% IV 1,000 ML 999 ML IV CONT ×2 (13:02→15:28)
--- NOTE | 2019-10-25 13:32 | PC.NURSE ---
Pt attempted to urinate, but not enough for specimen
--- NOTE | 2019-10-25 14:43 | PC.NURSE ---
Pt states he is able to urinate now, attempting at this time
[2019-10-25 14:58] LABS: Add Urine Microscopic? NO; Appearance Urine Clear (Clear); Bilirubin Urine Negative (Negative); Blood Urine Negative (Negative); Color Urine Straw (Yellow); Glucose Urine UA Negative (Negative); Ketones Urine Negative (Negative); Leukocyte Esterase Ur Negative LEU/UL (Negative); Nitrate Urine Negative (Negative); Protein Urine Negative (Negative); Specific Grav Ur 1.024 (1.001-1.035); Urobilinogen Urine Negative mg/dL (<2.0)
[2019-10-25 14:59] LABS: Lactic Acid Reflex 3.4 mmol/L (0.7-2.1)
[2019-10-25] MEDS: SODIUM CHLORIDE 0.9% IV 500 ML 999 ML IV CONT (15:28)
--- NOTE | 2019-10-25 15:36 | ED.BACK ---
HPI - Back Pain/Injury General Chief Complaint: Back Pain/Injury Stated Complaint: BACK PAIN Time Seen by Provider: 10/25/19 11:48 History of Present Illness HPI Narrative: Patient presents emergency department from home via EMS for back pain. Patient states she is had low back pain that began last night. Patient states pain is located in the bilateral lower back. He denies any known trauma or injury. States he does have a history of lung cancer with metastasis to the brain bone and liver states that he had a port put in this past week and is scheduled for radiation and chemotherapy with Dr. Diaz starting next week. Denies any fevers or chills chest pain shortness of breath abdominal pain nausea vomiting or any other symptoms. Related Data Home Medications Medication Instructions Recorded Confirmed dexamethasone 4 mg PO BID 10/16/19 10/22/19 hydrocodone-acetaminophen 1 tablet PO Q4H PRN 10/16/19 10/22/19 loperamide [Imodium A-D] 2 mg PO QID PRN 10/17/19 10/22/19 prochlorperazine maleate 10 mg PO Q6-8H PRN 10/22/19 10/22/19 Allergies Allergy/AdvReac Type Severity Reaction Status Date / Time No Known Allergies Allergy Verified 10/25/19 11:47 Review of Systems Review of Systems: Narrative: Gen.: Denies fevers or chills Eyes: Denies eye pain or visual change ENT: Denies congestion Respiratory: Denies shortness of breath or cough CV: Denies chest pain or palpitations GI: Denies abdominal pain nausea, emesis or diarrhea denies burning, urgency, frequency or hematuria Musculoskeletal: Reports low back pain Neuro: Denies numbness, tingling, weakness or focal weakness Skin: Denies rash Except as documented, all other systems reviewed and negative [facility] Past Medical History Medical History Chicken pox Chronic back pain Fatigue High cholesterol Mononucleosis Mumps Non-small cell carcinoma of left lung, stage 4 (Unknown) liver metastasis Pneumonia Screening cholesterol level Social History Social History Smoking packs per day: 2 Smoking cigarettes per day: 40.0 Years smoked: 50 Smoking pack-years: 100.00 Smoking status: Former smoker Tobacco type: cigarettes Gender identity (if verbalized by the patient): Male Spiritual care concerns: No Exam Narrative: Exam Narrative: APPEARANCE: No acute distress, nontoxic, resting in bed EYES: EOMI HEENT: Normocephalic, atraumatic, OMM RESPIRATORY: No respiratory distress Clear to auscultation bilaterally with no rhonchi wheezing or rales. CARDIOVASCULAR: Regular rate and rhythm without murmurs rubs or gallops. ABDOMINAL: Soft, nontender, nondistended, no rebound or guarding MUSCULOSKELETAl: Moves all extremities. No clubbing, cyanosis or edema. Back: No midline thoracic lumbar tenderness palpation, tender palpation bilateral para 2 muscles L3-5, pain increased with forward flexion NEURO: Awake and alert. Following commands, speech normal, no focal deficits SKIN:: Warm, dry. No rashes lesions or abrasions PSYCHIATRIC: Normal affect/mood, Course Course Emergency Course: Discussed with patient chest x-ray. He states he has had no fevers states he has had no shortness of breath. States he has had an occasional cough he was recently in the hospital getting his port placed. We will test recovered at this time Discussed with Dr. Johnson for general surgery. States the port may be used Discussed with MJ Pederson for Dr. Villasenor presentation work-up. Agrees with admission at this time Discussed with patient and family results of workup and diagnosis. Discussed need for admission. Patient and family understand and agree to current treatment plan Vital Signs Vital signs: Vital Signs Temperature 97.8 F 10/25/19 11:41 Pulse Rate 119 H 10/25/19 11:41 Respiratory Rate 18 10/25/19 11:41 Blood Pressure 121/66 10/25/19 11:41 Pulse Oximetry 96
--- NOTE | 2019-10-25 17:27 | ADMGEN ---
This patient, Walter Blackmon, was admitted to Intensive Care Unit-5. Patient/family oriented to hospital policies and general routines including ID bracelet, bed and alarms, visiting hours, pain management, procedures, bathroom and other care routines, personal items, smoking policy, room service/diet, and visiting hours. Valuables list has been completed. Information on how to activate the Rapid Response Team has been discussed. Patient/Family are encouraged to report perceived risks to care and to ask questions if they do not understand what they are told or what they should do.
[2019-10-25 17:40] LABS: Reflex Lactic Acid Yes or No Add Lactic
[2019-10-25] MEDS: SODIUM CHLORIDE 0.9% IV 1,000 ML 50 ML IV CONT (20:00)
--- NOTE | 2019-10-25 20:33 | PM.IMHP ---
H&P: HPI History of Present Illness Chief complaint: Severe sepsis/community acquired pneumonia/lung ca Narrative: Walter Blackmon is a 64 year old male who has metastatic cancer from lung non-small cell carcinoma that has metastasized to his neck back liver and brain. He said he had surgery to his neck but has not yet had chemo radiation. He recently had a Port-A-Cath placed 10/22/2019 here at [facility]. He has a mass in the left upper lung lobe. He has not had any fever chills. He stated he has already been tested for covid 19 at least 2 times already. Today he got tested again. His chest x-ray was read as airspace opacities in the lower lung zones consistent with pneumonia. Mass in the left upper lung zone, consistent with primary bronchogenic carcinoma. Emphysema. The patient was started on azithromycin and Rocephin. The ER provider did call the surgeon to see if the port could be accessed. As per ER notes it was noted that it was okay to access the Port-A-Cath. So I did access the Port-A-Cath. Fluids were started as the patient's blood pressure was soft. Abdominal pelvis CT was read as pneumonia in the lower lobes. Liver masses with lytic bone lesions consistent with metastatic disease. The patient had been complaining of lower back pain he takes [place] at home but stated that he does not feel like he has been keeping up on him and that he has been having severe back pain. The patient has been on dexamethasone at home. White count was noted to be 14.8. Sodium was low at 128. Liver enzymes are elevated. He sees Dr. donato as his oncologist and has spoke with Dr. Sahu concerning radiation. Date of service 10/25/2019 Review of Systems Review of Systems: All systems reviewed & are unremarkable except as noted in HPI and below Constitutional: Constitutional: Reports as per HPI and Reports no additional constitutional complaints Eyes: Eyes: Reports as per HPI and Reports no additional eye complaints ENT: Reports system reviewed and no additional complaints, except as documented and Reports Normal hearing present Cardiovascular: Cardiovascular: Reports no additional cardiovascular complaints Respiratory: Respiratory: Reports no additional respiratory complaints and Reports no additional respiratory complaints Gastrointestinal: Gastrointestinal: Reports as per HPI and Reports no additional gastrointestinal complaints Musculoskeletal: Musculoskeletal: Reports no additional musculoskeletal complaints Integumentary/Breasts: Skin/Breast: Reports system reviewed and no additional complaints, except as docu and Reports as per HPI Neurologic: Reports system reviewed and no additional complaints, except as documented, Reports as per HPI and Reports Normal hearing present Psychiatric: Psychiatric: Reports no additional psychiatric complaints and Reports as per HPI Endocrine: Endocrine: Reports no additional endocrine complaints Hematologic/Lymphatic: Hematologic/Lymphatic: Reports no additional hematologic/lymphatic complaints Allergic/Immunologic: Allergic/Immunologic: Reports no additional allergic/immunologic complaints PMFSH Past Medical History Medical History (Updated 10/25/19 @ 20:41 by Dacia Correa NP) Chicken pox Chronic back pain Fatigue High cholesterol Mononucleosis Mumps Non-small cell carcinoma of left lung, stage 4 (Unknown) liver metastasis Pneumonia Screening cholesterol level Surgical History Surgical History (Updated 10/25/19 @ 20:41 by Dacia Correa NP) H/O neck surgery He stated that he had some cancer script off the back of his neck. Family History Family History Father , 95 No problems noted. Mother , 56 Cancer Social History Social History (Updated 10/25/19 @ 20:42 by Dacia Correa NP) Social History: The patient lives home alone. He is and he is retired. He has 1 child
[2019-10-25 21:27] LABS: Lactic Acid 3.2 mmol/L (0.7-2.1)
[2019-10-26] VITALS: BP 103/57; PULSE 111; PULSE 112; RESP 18; O2SAT 96
[2019-10-26 02:00] VITALS: PULSE 114
[2019-10-26 04:00] VITALS: BP 103/71; PULSE 107; PULSE 111; RESP 19; TEMP 36.5; O2SAT 97
[2019-10-26 05:46] LABS: Basophils Percent Auto 0.2 % (0.2-1.2); Eosinophils Absolute Auto 0.1 K/mm3 (0-0.3); Eosinophils Percent Auto 0.8 % (0-4.4); Hematocrit 38.2 % (42.0-52.0); Hemoglobin 12.8 g/dL (14.0-18.0); Immature Granulocyte Percent A 1.5 % (0-0.5); Lymphocytes Absolute Auto 0.92 K/mm3 (0.9-3.2); Mean Corpuscular HGB Conc 33.5 g/dl (32-36); Mean Corpuscular Hemoglobin 32.2 pg (26-34); Mean Corpuscular Volume 96.2 fl (80-100); Mean Platelet Volume 12.1 fl (7.4-10.4); Monocytes Absolute Auto 0.9 K/mm3 (0.1-0.6); Monocytes Percent Auto 7.2 % (2.6-8.5); Neutrophils Absolute Auto 10.9 K/mm3 (1.3-6.7); Neutrophils Percent Auto 83.3 % (45.5-73.1); Platelet Count Result 89 k/mm3 (150-375); Red Blood Count 3.97 M/mm3 (4.6-6.20); Red Cell Distribution Width 17.9 % (11.5-14.5); White Blood Count 13.1 K/mm3 (4.5-10.0)
[2019-10-26 05:55] LABS: Blood Urea Nitrogen 14 mg/dL (9-20); Calcium 8.4 mg/dL (8.4-10.2); Carbon Dioxide 25 mmol/L (22-30); Chloride 100 mmol/L (98-107); Estimated CRCL calculation 113 ml/min; Estimated Glomerular Filt Rate > 60; Glucose 67 mg/dL (75-110); Potassium 4.4 mmol/L (3.4-5.0); Sodium 130 mmol/L (137-145)
[2019-10-26 06:00] VITALS: PULSE 110
[2019-10-26 08:00] VITALS: BP 108/71; PULSE 124; RESP 28; O2SAT 97
--- NOTE | 2019-10-26 08:07 | PC.NURSE ---
Entered patient room with breakfast, patient agitated, angry and wants to leave. Patient ordered breakfast at 0645, and was not delivered until 0800, stated no one was assisting him. Left message to advise Dr. Villasenor that patient intends to leave AMA.
--- NOTE | 2019-10-26 09:35 | PC.NURSE ---
Patient left AMA. IV access removed, right port-a-cath removed. Patient educated on risks related to leaving prior to discharge, patient acknowledged understanding. Patient left ICU 5 via wheelchair. No distress noted. Dr.s Villasenor and Joe notified.
[2019-10-26 13:20] LABS: SARS-CoV-2 RNA PCR Negative
--- NOTE | 2019-12-04 13:01 | WPDONCPN ---
Progress Note: A/P - Time Spent With Patient Total time spent is greater than 50% in coordination of care (as documented) at patient's floor/unit and/or counseling patient: Not seen less than 15 minutes Subjective Interval history: Patient left AMA before seen. Review of Systems - Neurologic Reports system reviewed and no additional complaints, except as documented, Reports hearing normal Exam Vital signs: Temp Pulse Resp BP Pulse Ox 36.5 C 124 H 28 H 108/71 97 10/26/19 04:00 10/26/19 08:00 10/26/19 08:00 10/26/19 08:00 10/26/19 08:00 PN: Objective Data - Labs CBC & Chem 7: 10/26/19 05:17 10/26/19 05:17
== END 2019-10-26 09:25 | disposition left against medical advice (07) | DRG 871 ==
LOC: ANHED 12:10 → ANHICU 16:10
PROVIDERS: Admitting Provider Family Medicine; Emergency Provider Emergency Medicine; PCP Emergency Medicine; Visit Provider Family Medicine
DX: A41.9 Sepsis, unspecified organism (principal); J18.9 Pneumonia, unspecified organism; C34.90 Malignant neoplasm of unspecified part of unspecified bronchus or lung; C78.7 Secondary malignant neoplasm of liver and intrahepatic bile duct; C79.51 Secondary malignant neoplasm of bone; C79.31 Secondary malignant neoplasm of brain; R65.20 Severe sepsis without septic shock; Z20.828 Contact with and (suspected) exposure to other viral communicable diseases; E78.00 Pure hypercholesterolemia, unspecified; M54.5 Low back pain; G89.29 Other chronic pain; Z87.891 Personal history of nicotine dependence
CPT/HCPCS: 36415; 71045; 74177; 80048; 80053; 81003; 83605; 85025; 85055; 85610; 85730; 87040; 87070; 87205; 87635; 96361; 96365; 96367; 96375; 99285; C9803; J0456; J0696; J1642; J2270; J2405; J7030; J7040; Q9967; U0003

== ENCOUNTER 2019-10-30 09:26 | Outpatient (RCR) | payer MEDICARE, SELFPAY ==
--- NOTE | 2019-10-25 16:04 | PC.NURSE ---
Unable to reach patient, left message for patient to call office for chemotherapy education.
[2019-10-30 09:47] LABS: Basophils Percent Auto 0.3 % (0.2-1.2); Eosinophils Absolute Auto 0.1 K/mm3 (0-0.3); Eosinophils Percent Auto 0.8 % (0-4.4); Hematocrit 38.3 % (42.0-52.0); Hemoglobin 13.1 g/dL (14.0-18.0); Immature Granulocyte Absolute 0.12 K/mm3 (0.00-0.031); Immature Granulocyte Percent A 1.1 % (0-0.5); Lymphocytes Absolute Auto 1.11 K/mm3 (0.9-3.2); Lymphocytes Percent Auto 10.4 % (18.3-44.2); Mean Corpuscular HGB Conc 34.2 g/dl (32-36); Mean Corpuscular Hemoglobin 32.1 pg (26-34); Mean Corpuscular Volume 93.9 fl (80-100); Mean Platelet Volume 10.5 fl (7.4-10.4); Monocytes Absolute Auto 0.9 K/mm3 (0.1-0.6); Monocytes Percent Auto 8.7 % (2.6-8.5); Neutrophils Absolute Auto 8.4 K/mm3 (1.3-6.7); Neutrophils Percent Auto 78.7 % (45.5-73.1); Nucleated Red Blood Cells Perc 0.2 % (0.0-0.2); Platelet Count Result 96 k/mm3 (150-375); Red Blood Count 4.08 M/mm3 (4.6-6.20); Red Cell Distribution Width 18.7 % (11.5-14.5); White Blood Count 10.7 K/mm3 (4.5-10.0)
[2019-10-30 16:47] LABS: Alanine Aminotransferase 113 U/L (4-50); Albumin Level 2.4 g/dL (3.5-5.1); Alkaline Phosphatase 824 U/L (38-126); Aspartate Amino Transferase 378 U/L (17-59); Bilirubin,Total 4.8 mg/dL (0.2-1.3); Blood Urea Nitrogen 15 mg/dL (9-20); Calcium 9.5 mg/dL (8.4-10.2); Carbon Dioxide 25 mmol/L (22-30); Chloride 95 mmol/L (98-107); Estimated CRCL calculation 78 ml/min; Estimated Glomerular Filt Rate > 60; Glucose 115 mg/dL (75-110); Magnesium 1.8 mg/dL (1.6-2.3); Potassium 4.3 mmol/L (3.4-5.0); Sodium 128 mmol/L (137-145)
== END 2019-11-07 12:05 | disposition hospice, home (50) ==
LOC: AMCINF 09:26
PROVIDERS: PCP Emergency Medicine; Visit Provider Internal Medicine Hematology & Oncology
DX: C34.92 Malignant neoplasm of unspecified part of left bronchus or lung (principal); C79.51 Secondary malignant neoplasm of bone; C78.7 Secondary malignant neoplasm of liver and intrahepatic bile duct; C79.31 Secondary malignant neoplasm of brain; E78.00 Pure hypercholesterolemia, unspecified; R53.83 Other fatigue; Z95.828 Presence of other vascular implants and grafts
CPT/HCPCS: 36415; 80053; 83735; 84443; 85025; 85055